=== PATIENT | male | born 1995 | race Two or more races ===

== ENCOUNTER 2021-10-08 19:43 | Emergency (ER) | payer SELFPAY ==
[~2021-10-08] VITALS: Ht 172.7 cm; Wt 104.5 kg
[2021-10-08 20:01] VITALS: BP 144/95
== END 2021-10-08 21:06 | disposition left against medical advice (07) ==
LOC: EMS 19:57
DX: I10 Essential (primary) hypertension (principal); Z53.21 Procedure and treatment not carried out due to patient leaving prior to being seen by health care provider